=== PATIENT | male | born 1960 | race African-American/Black ===

== ENCOUNTER 2023-11-19 07:25 | Inpatient (IN) | payer MEDICARE, OTHER ==
[2023-11-19] VITALS (19 sets, daily range): BP systolic 157–213; BP diastolic 53–125; PULSE 61–88; RESP 14–33; TEMP 97.7–98.7; O2SAT 100
[~2023-11-19] VITALS: Ht 172.7 cm; Wt 74.8 kg
[2023-11-19] MEDS: ALBUTEROL (0.083%) 2.5MG/3ML NEB HHN STA (08:03)
[2023-11-19] MEDS: IPRATROPIUM BROMIDE (0.02%) 0.5MG/2.5ML NEB HHN STA (08:04)
[2023-11-19] MEDS: MAGNESIUM 2 G PREMIX 50 ML IV STA (08:12)
[2023-11-19] MEDS: METHYLPREDNISOLONE SOD SUCC 125MG/2ML (ACT-O-VIAL) IV STA (08:12)
[2023-11-19 08:15] LABS: BASOPHILS % 0.8 % (0.0-2.0); CHLORIDE 112 mEq/L (98-107); EOSINOPHILS % 3.4 % (0.0-5.0); HEMATOCRIT. 28.7 % (42.0-52.0); HEMOGLOBIN. 9.4 g/dL (14.0-18.0); LYMPHOCYTES % 14.2 % (20.0-50.0); MEAN CORPUSCULAR HEMOGLOBIN 30.4 pg (28.0-32.0); MEAN CORPUSCULAR HGB CONC 32.6 g/dL (31.0-37.0); MEAN CORPUSCULAR VOLUME 93.4 fL (80.0-94.0); MEAN PLATELET VOLUME 8.4 fl (7.4-10.4); MONOCYTES % 10.5 % (2.0-8.0); NEUTROPHILS % 71.1 % (40.0-76.0); PLATELET 201 x1000/uL (130-400); POTASSIUM 3.5 mEq/L (3.5-5.1); RED BLOOD CELL COUNT 3.07 mill/uL (4.7-6.1); RED CELL DISTRIBUTION WIDTH 15.5 % (11.6-14.6); SODIUM 144 mEq/L (136-145); WHITE BLOOD COUNT 5.3 x1000/uL (4.5-11.0)
[2023-11-19 08:16] LABS: CARBON DIOXIDE 25 mEq/L (21-32)
[2023-11-19 08:17] LABS: CALCIUM 8.3 mg/dL (8.7-10.4)
[2023-11-19 08:22] LABS: GLUCOSE 98 mg/dL (70-105); UREA NITROGEN BLOOD 37 mg/dL (9-23)
[2023-11-19 08:24] LABS: TROPONIN I HIGH SENSITIVITY 121 ng/L (3.0-53)
[2023-11-19] MEDS: HYDRALAZINE 20MG/ML VIAL IV ONE (09:02)
[2023-11-19] MEDS: NITROGLYCERIN 0.4MG TABLET SL SL ONE (09:36)
[2023-11-19 10:15] LABS: HEPATITIS B SURFACE ANTIGEN NEGATIVE (Negative)
[2023-11-19] MEDS ORDERED: DOCUSATE SODIUM 100MG CAPSULE PO PRN (10:15)
[2023-11-19] MEDS ORDERED: ACETAMINOPHEN 325MG TABLET PO PRN ×2 (10:15)
[2023-11-19] MEDS ORDERED: MAGNESIUM/ALUMINUM HYDROXIDE/SIMETHICONE 30ML UDC PO PRN (10:15)
[2023-11-19] MEDS ORDERED: GUAIFENESIN 200MG/10ML SUGAR FREE UDC PO PRN (10:15)
[2023-11-19] MEDS ORDERED: IPRATROPIUM/ALBUTEROL 0.5-3(2.5)MG/3ML NEB HHN PRN (10:15)
[2023-11-19] MEDS ORDERED: ONDANSETRON HCL 4MG/2ML INJ IV PRN (10:15)
[2023-11-19 10:35] LABS: HEPATITIS A AB IGM NEGATIVE (Negative)
[2023-11-19 10:36] LABS: HEPATITIS B CORE AB IGM NEGATIVE (Negative)
[2023-11-19 10:40] LABS: HEPATITIS C AB REACTIVE (Pos) (Negative)
[2023-11-19 10:52] LABS: BG BASE EXCESS -1.4 mmol/L (-2.0-2.0); BG CARBOXYHEMOGLOBIN 1.7 % (0.5-1.5); BG DEOXYHEMOGLOBIN 0.1 % (0.0-5.0); BG HCO3 ACT 22.2 mmol/L (22.0-26.0); BG METHEMOGLOBIN 0.3 % (0.0-1.5); BG OXYGEN SATURATION 99.9 % (92.0-98.5); BG OXYHEMOGLOBIN 97.9 % (94.0-97.0); BG PCO2 33.2 mmHg (35.0-45.0); BG PH 7.444 (7.350-7.450); BG SAMPLE SITE LEFT RADIAL; BG VENT MODE MASK - BIPAP
[2023-11-19 10:53] LABS: TRIGLYCERIDE 53 mg/dL (0-150)
[2023-11-19 10:54] LABS: LDL CHOLESTEROL 58 mg/dL (5-100)
[2023-11-19 10:55] LABS: ALANINE AMINOTRANSFERASE 22 IU/L (10-49); ASPARTATE AMINOTRANSFERASE 48 IU/L (<34); BILIRUBIN TOTAL 0.2 mg/dL (0.1-1.0); CHOLESTEROL 135 mg/dL (<200); HDL CHOLESTEROL 59 mg/dL (>55); PROTEIN TOTAL 6.4 g/dL (6.0-8.3)
[2023-11-19 10:56] LABS: BILIRUBIN DIRECT < 0.1 mg/dL (<=3.0)
[2023-11-19 10:59] LABS: T4 FREE 1.25 ng/dL (0.89-1.76); THYROID STIMULATING HORMONE 2.37 uIU/mL (0.55-4.78)
[2023-11-19] MEDS: ENOXAPARIN 30MG/0.3ML SYR SUBCUT SCH (12:13)
[2023-11-19] MEDS: LABETALOL 5MG/ML 4ML INJ IV NR (12:14)
[2023-11-19] MEDS: CLONIDINE 0.1MG TABLET PO PRN (12:52)
[2023-11-19] MEDS ORDERED: NICARDIPINE 100 MG in SODIUM CHLORIDE 0.9% 60 ML IV PRN (13:30)
[2023-11-19] MEDS: HYDRALAZINE HCL 100MG TABLET PO SCH (17:02)
[2023-11-19] MEDS: AMLODIPINE 10MG TABLET PO SCH (17:17)
[2023-11-19] MEDS: SEVELAMER CARBONATE 800 MG TABLET PO SCH (17:18)
[2023-11-19 18:13] LABS: TROPONIN I HIGH SENSITIVITY 157 ng/L (3.0-53)
[2023-11-19] MEDS ORDERED: HYDRALAZINE HCL 100MG TABLET PO SCH (21:00)
[2023-11-19] MEDS: FAMOTIDINE 20MG TABLET PO SCH (22:10)
[2023-11-19] MEDS: EPOETIN ALFA-EPBX 4,000 UNIT/ML VIAL SUBCUT SCH (22:10)
[2023-11-19] MEDS: CLONIDINE 0.2MG TABLET PO SCH (22:10)
[2023-11-19 22:26] LABS: *AMPHETAMINES SCREEN URINE NEGATIVE (NEGATIVE); *BARBITURATES SCREEN URINE NEGATIVE (NEGATIVE); *BENZODIAZEPINES SCREEN URINE NEGATIVE (NEGATIVE); *COCAINE SCREEN URINE PRESUMPTIVE POSITIVE (NEGATIVE); CANNABINOID URINE SCREEN PRESUMPTIVE POSITIVE (NEGATIVE); ECSTASY MDMA SCREEN URINE NEGATIVE (NEGATIVE); METHADONE URINE SCREEN NEGATIVE (NEGATIVE); OPIATES URINE SCREEN NEGATIVE (NEGATIVE); PHENCYCLIDINE URINE SCREEN NEGATIVE (NEGATIVE)
[2023-11-19 23:49] LABS: TROPONIN I HIGH SENSITIVITY 161 ng/L (3.0-53)
[2023-11-20] VITALS (12 sets, daily range): BP systolic 137–171; BP diastolic 67–85; PULSE 65–78; RESP 13–21; TEMP 98.1–98.7
[2023-11-20 08:32] LABS: POTASSIUM 3.4 mEq/L (3.5-5.1)
[2023-11-20 08:33] LABS: CALCIUM 8.3 mg/dL (8.7-10.4)
[2023-11-20 08:40] LABS: PHOSPHORUS 4.2 mg/dL (2.5-4.9)
[2023-11-20 08:42] LABS: BASOPHILS % 0.4 % (0.0-2.0); EOSINOPHILS % 0.6 % (0.0-5.0); HEMATOCRIT. 24.3 % (42.0-52.0); LYMPHOCYTES % 17.8 % (20.0-50.0); MEAN CORPUSCULAR HEMOGLOBIN 30.3 pg (28.0-32.0); MEAN CORPUSCULAR VOLUME 91.8 fL (80.0-94.0); MONOCYTES % 14.1 % (2.0-8.0); NEUTROPHILS % 67.1 % (40.0-76.0); PLATELET 179 x1000/uL (130-400); RED BLOOD CELL COUNT 2.65 mill/uL (4.7-6.1); WHITE BLOOD COUNT 6.1 x1000/uL (4.5-11.0)
[2023-11-20 08:48] LABS: CREATININE 5.4 mg/dL (0.6-1.3)
[2023-11-20] MEDS ORDERED: AMLODIPINE 10MG TABLET PO SCH (09:00)
[2023-11-20] MEDS: ASPIRIN 81MG TABLET PO SCH (09:09)
[2023-11-20] MEDS: DOXAZOSIN MESYLATE 2MG TABLET PO SCH (09:11)
[2023-11-20] MEDS: ISOSORBIDE DINITRATE 10MG TABLET PO SCH (09:12)
[2023-11-20] MEDS: MAGNESIUM 2 G PREMIX 50 ML IV NR (13:11)
[2023-11-20] MEDS: ISOSORBIDE DINITRATE 20MG TABLET PO SCH (13:18)
[2023-11-20] MEDS ORDERED: CLONIDINE 0.2MG TABLET PO SCH (14:00)
[2023-11-20] MEDS: CLONIDINE 0.2MG TABLET PO SCH (21:30)
[2023-11-21] VITALS (12 sets, daily range): BP systolic 132–160; BP diastolic 61–101; PULSE 62–76; RESP 15–22; TEMP 98–98.8; O2SAT 100
[2023-11-21] MEDS: BUDESONIDE 0.5MG/2ML NEB HHN SCH (00:25)
[2023-11-21 07:50] LABS: BASOPHILS % 0.7 % (0.0-2.0); HEMATOCRIT. 23.5 % (42.0-52.0); HEMOGLOBIN. 7.6 g/dL (14.0-18.0); LYMPHOCYTES % 19.3 % (20.0-50.0); MEAN CORPUSCULAR HGB CONC 32.5 g/dL (31.0-37.0); MEAN CORPUSCULAR VOLUME 92.4 fL (80.0-94.0); MEAN PLATELET VOLUME 8.9 fl (7.4-10.4); MONOCYTES % 10.4 % (2.0-8.0); NEUTROPHILS % 66.6 % (40.0-76.0); PLATELET 174 x1000/uL (130-400); RED BLOOD CELL COUNT 2.55 mill/uL (4.7-6.1); RED CELL DISTRIBUTION WIDTH 15.2 % (11.6-14.6); WHITE BLOOD COUNT 4.8 x1000/uL (4.5-11.0)
[2023-11-21 07:51] LABS: POTASSIUM 3.6 mEq/L (3.5-5.1)
[2023-11-21 07:52] LABS: CALCIUM 8.3 mg/dL (8.7-10.4)
[2023-11-21 08:17] LABS: CREATININE 6.1 mg/dL (0.6-1.3)
[2023-11-21] MEDS ORDERED: MAGNESIUM 2 G PREMIX 50 ML IV ONE (08:45)
== END 2023-11-21 13:10 | disposition left against medical advice (07) | DRG 280 ==
LOC: ER 07:33 → 5EST 08:44 → EDBEDREQTM 08:54 → EDBEDREQ 08:54 → EDBEDREQSVC 08:54
PROVIDERS: ADMIT Internal Medicine; ATTEND Internal Medicine
PROC: 5A09357 Assistance with Respiratory Ventilation, Less than 24 Consecutive Hours, Continuous Positive Airway Pressure (ICD-10-PCS; principal; 2023-11-19)
PROC: 5A1D70Z Performance of Urinary Filtration, Intermittent, Less than 6 Hours Per Day (ICD-10-PCS; 2023-11-19)
PROC: 5A1D70Z Performance of Urinary Filtration, Intermittent, Less than 6 Hours Per Day (ICD-10-PCS; 2023-11-21)
DX: I13.2 Hypertensive heart and chronic kidney disease with heart failure and with stage 5 chronic kidney disease, or end stage renal disease (principal); I50.33 Acute on chronic diastolic (congestive) heart failure; I21.4 Non-ST elevation (NSTEMI) myocardial infarction; J96.01 Acute respiratory failure with hypoxia; J96.02 Acute respiratory failure with hypercapnia; N18.6 End stage renal disease; I16.1 Hypertensive emergency; J44.1 Chronic obstructive pulmonary disease with (acute) exacerbation; E78.5 Hyperlipidemia, unspecified; Z99.2 Dependence on renal dialysis; D64.9 Anemia, unspecified; B19.20 Unspecified viral hepatitis C without hepatic coma; I1A.0 Resistant hypertension; F14.10 Cocaine abuse, uncomplicated; E83.42 Hypomagnesemia; E87.6 Hypokalemia; F19.10 Other psychoactive substance abuse, uncomplicated; Z91.148 Patient's other noncompliance with medication regimen for other reason
CPT/HCPCS: 36415; 36600; 71045; 80048; 80061; 80076; 80305; 82375; 82805; 83735; 83880; 84100; 84439; 84443; 84484; 85025; 86705; 86709; 87340; 90935; 93005; 93306; 94640; 94644; 94660; 99291; J0360; J0885; J1650; J2405; J2919; J3475; J3490; J7626

== ENCOUNTER 2024-12-19 06:57 | Inpatient (IN) | payer MEDICARE, OTHER ==
[2024-12-19] VITALS (64 sets, daily range): BP systolic 100–212; BP diastolic 48–113; PULSE 77–131; RESP 22–50; TEMP 36.6696–37.2252; O2SAT 99–100
[~2024-12-19] VITALS: Ht 175.3 cm; Wt 60.8 kg
[~2024-12-19 06:57] MED LIST: ASPI-1406 PO; CLON0.3T PO; FURO-151 MT; HYDR100T31 PO; ISOS30TA11 PO; NIFE90TA60 MT
[2024-12-19] MEDS: MORPHINE SULFATE 4 MG/ML INJ (FOR IV/IM USE) IV ONE (07:19)
[2024-12-19 07:47] LABS: BASOPHILS % 0.5 % (0.0-2.0); EOSINOPHILS % 2.4 % (0.0-5.0); HEMATOCRIT. 29.5 % (42.0-52.0); HEMOGLOBIN. 9.6 g/dL (14.0-18.0); LYMPHOCYTES % 13.2 % (20.0-50.0); MEAN PLATELET VOLUME 7.7 fl (7.4-10.4); MONOCYTES % 9.3 % (2.0-8.0); NEUTROPHILS % 74.6 % (40.0-76.0); PLATELET 124 x1000/uL (130-400); RED BLOOD CELL COUNT 3.29 mill/uL (4.7-6.1); RED CELL DISTRIBUTION WIDTH 15.7 % (11.6-14.6)
[2024-12-19 08:07] LABS: UREA NITROGEN BLOOD 42 mg/dL (9-23)
[2024-12-19 08:24] LABS: CREATININE 6.1 mg/dL (0.6-1.3); TROPONIN I HIGH SENSITIVITY 215 ng/L (3.0-53)
[2024-12-19] MEDS: SODIUM CHLORIDE 0.9% (SEPSIS BOLUS) IV ONE (08:43)
[2024-12-19] MEDS: HYDRALAZINE 20MG/ML VIAL IV ONE (09:00)
[2024-12-19] MEDS: PIPERACILLIN/TAZO 3.375G/50ML 50 ML IV ONE (09:09)
[2024-12-19] MEDS: NITROGLYCERIN 0.4MG TABLET SL SL PRN (09:13)
[2024-12-19] MEDS: PROPOFOL 10MG/ML 100ML 100 ML IV SCH (09:51)
[2024-12-19] MEDS: SUCCINYLCHOLINE CHLORIDE 200MG/10ML IV ONE (09:55)
[2024-12-19] MEDS: ETOMIDATE 2MG/ML 10ML VIAL IV ONE (09:55)
[2024-12-19] MEDS: HYDRALAZINE 20MG/ML VIAL IM NR (12:02)
[2024-12-19] MEDS ORDERED: ONDANSETRON HCL 4MG/2ML INJ IV PRN (12:15)
[2024-12-19 12:26] LABS: HEPATITIS A AB IGM NEGATIVE (Negative)
[2024-12-19 12:27] LABS: HEPATITIS B CORE AB IGM NEGATIVE (Negative)
[2024-12-19 12:33] LABS: BG BASE EXCESS -5.0 mmol/L (-2.0-3.0); BG CARBOXYHEMOGLOBIN 0.3 % (0.5-1.5); BG DEOXYHEMOGLOBIN 0.6 % (0.0-5.0); BG FRACTION INSPIRED OXYGEN 90; BG HCO3 ACT 21.2 mmol/L (21.0-28.0); BG METHEMOGLOBIN 0.3 % (0.5-1.5); BG OXYGEN SATURATION 99.4 % (94.0-98.0); BG OXYHEMOGLOBIN 98.8 % (94.0-98.0); BG PCO2 44.1 mmHg (35.0-48.0); BG PEEP (cmH2O) 10.0 cmH2O; BG PH 7.300 (7.350-7.450); BG PIP 20.0 cmH2O; BG PO2 292.6 mmHg (83.0-108.0); BG SAMPLE SITE RIGHT RADIAL; BG TOTAL HEMOGLOBIN 9.6 g/dL (13.5-17.5); BG TOTAL RESPIRATORY RATE 27 b/min; BG VENT MODE VENT - P/C; BG VENT RATE 22.0 set
[2024-12-19 13:11] LABS: HEPATITIS C AB REACTIVE (Pos) (Negative)
[2024-12-19] MEDS: IPRATROPIUM/ALBUTEROL 0.5-3(2.5)MG/3ML NEB HHN SCH (14:05)
[2024-12-19] MEDS: METHYLPREDNISOLONE SOD SUCC 40MG/ML (ACT-O-VIAL) IV SCH (14:08)
[2024-12-19] MEDS: ENOXAPARIN 30MG/0.3ML SYR SUBCUT SCH (14:08)
[2024-12-19] MEDS: PROPOFOL 10MG/ML 100ML 100 ML IV PRN (14:08)
[2024-12-19] MEDS: SODIUM CHLORIDE 0.9% 3ML FLUSH IVF SCH (14:13)
[2024-12-19] MEDS: ACETAMINOPHEN 325MG TABLET PO PRN (17:28)
[2024-12-19] MEDS ORDERED: HYDRALAZINE 20MG/ML VIAL IV SCH (18:00)
[2024-12-19] MEDS: ATORVASTATIN CALCIUM 20MG TABLET PO SCH (20:41)
[2024-12-19] MEDS: AMLODIPINE 5MG TABLET PO SCH (20:41)
[2024-12-19] MEDS: METOPROLOL TARTRATE 25MG TABLET PO SCH (20:42)
[2024-12-19] MEDS: HYDRALAZINE 20MG/ML VIAL IV PRN (21:36)
[2024-12-19] MEDS: FENTANYL CITRATE/PF 50MCG/ML 2ML VIAL IV PRN (22:42)
[2024-12-20] VITALS (104 sets, daily range): BP systolic 73–206; BP diastolic 26–153; PULSE 68–126; RESP 18–42; TEMP 37.2–37.72524; O2SAT 93–100
[2024-12-20] MEDS ORDERED: FENTANYL CITRATE/PF 50MCG/ML 2ML VIAL IV ONE
[2024-12-20] MEDS: LIDOCAINE HCL 1% 10 MG/ML 10ML VIAL ONE (08:45)
[2024-12-20] MEDS: ASPIRIN 81MG EC TABLET PO SCH (08:53)
[2024-12-20] MEDS: PROPOFOL 10MG/ML 100ML 100 ML IV PRN (12:40)
[2024-12-20 13:07] LABS: BG BASE EXCESS 0.6 mmol/L (-2.0-3.0); BG CARBOXYHEMOGLOBIN 0.7 % (0.5-1.5); BG DEOXYHEMOGLOBIN 1.0 % (0.0-5.0); BG FRACTION INSPIRED OXYGEN 40; BG HCO3 ACT 23.6 mmol/L (21.0-28.0); BG METHEMOGLOBIN 0.3 % (0.5-1.5); BG OXYGEN SATURATION 99.0 % (94.0-98.0); BG OXYHEMOGLOBIN 98.0 % (94.0-98.0); BG PCO2 31.4 mmHg (35.0-48.0); BG PEEP (cmH2O) 10.0 cmH2O; BG PH 7.493 (7.350-7.450); BG PIP 20.0 cmH2O; BG PO2 159.3 mmHg (83.0-108.0); BG SAMPLE SITE LEFT RADIAL; BG TOTAL HEMOGLOBIN 9.2 g/dL (13.5-17.5); BG TOTAL RESPIRATORY RATE 22 b/min; BG VENT MODE VENT - P/C; BG VENT RATE 22.0 set
[2024-12-20] MEDS: CLONIDINE 0.2MG TABLET PO SCH (14:35)
[2024-12-20] MEDS: NOREPINEPHRINE 8MG/250ML PMX 250 ML IV PRN (16:41)
[2024-12-20] MEDS: METOPROLOL TARTRATE 50MG TABLET PO SCH (20:43)
[2024-12-21] VITALS (97 sets, daily range): BP systolic 106–213; BP diastolic 34–91; PULSE 71–104; RESP 16–31; TEMP 36.7–37.3; O2SAT 98–100
[2024-12-21 04:19] LABS: HEMATOCRIT. 32.4 % (42.0-52.0); HEMOGLOBIN. 10.0 g/dL (14.0-18.0); MEAN PLATELET VOLUME 8.1 fl (7.4-10.4); PLATELET 154 x1000/uL (130-400); RED BLOOD CELL COUNT 3.42 mill/uL (4.7-6.1); RED CELL DISTRIBUTION WIDTH 18.2 % (11.6-14.6)
[2024-12-21 04:31] LABS: TRIGLYCERIDE 319.0 mg/dL (0-150); UREA NITROGEN BLOOD 77.0 mg/dL (9-23)
[2024-12-21 04:36] LABS: CREATININE 6.0 mg/dL (0.6-1.3)
[2024-12-21] MEDS: MORPHINE SULFATE 2 MG/ML INJ (NOT FOR IM USE) IV NR (06:44)
[2024-12-21] MEDS ORDERED: NICARDIPINE 40MG/200ML PREMIX 200 ML IV PRN (07:00)
[2024-12-21] MEDS: NICARDIPINE 50 MG in SODIUM CHLORIDE 0.9% 250 ML IV PRN (07:14)
[2024-12-21 08:14] LABS: BG BASE EXCESS -1.8 mmol/L (-2.0-3.0); BG CARBOXYHEMOGLOBIN 0.5 % (0.5-1.5); BG DEOXYHEMOGLOBIN 1.2 % (0.0-5.0); BG FRACTION INSPIRED OXYGEN 50; BG HCO3 ACT 22.2 mmol/L (21.0-28.0); BG METHEMOGLOBIN 0.0 % (0.5-1.5); BG OXYGEN SATURATION 98.8 % (94.0-98.0); BG OXYHEMOGLOBIN 98.3 % (94.0-98.0); BG PCO2 34.6 mmHg (35.0-48.0); BG PEEP (cmH2O) 5.0 cmH2O; BG PH 7.425 (7.350-7.450); BG PO2 150.8 mmHg (83.0-108.0); BG SAMPLE SITE RIGHT RADIAL; BG TOTAL HEMOGLOBIN 9.6 g/dL (13.5-17.5); BG VENT MODE VENT - P/C; BG VENT RATE 18.0 set
[2024-12-21 08:16] LABS: LYMPHOCYTES % MANUAL 7.0 % (20.0-50.0); MONOCYTES % MANUAL 20.0 % (2.0-8.0); NEUTROPHILS % MANUAL 73.0 % (45.0-75.0); NUCLEATED RED BLOOD CELLS 2 /100 WBC; PLATELET ESTIMATE NORMAL
[2024-12-21] MEDS: SODIUM POLYSTYRENE SULFONATE 15 G/60 ML BOT PO NR (08:25)
[2024-12-21] MEDS: DEXTROSE 50% WATER 50ML SYRINGE IV NR (08:25)
[2024-12-21] MEDS: SODIUM BICARBONATE 8.4% 50MEQ/50ML SYR IV NR (08:25)
[2024-12-21] MEDS: INSULIN REGULAR (HUMULIN R) 1000UNITS/10ML VIAL IV NR (08:26)
[2024-12-21] MEDS: MIDAZOLAM 100MG/100ML PMX 100 ML IV PRN (11:27)
[2024-12-21] MEDS: NICARDIPINE 40MG/200ML PREMIX 200 ML IV PRN (18:42)
[2024-12-21] MEDS: HYDRALAZINE HCL 100MG TABLET PO SCH (21:10)
[2024-12-22] VITALS (101 sets, daily range): BP systolic 116–197; BP diastolic 48–147; PULSE 69–90; RESP 11–32; TEMP 36.6–37.4; O2SAT 20–100
[2024-12-22 05:34] LABS: PLATELET 170 x1000/uL (130-400); RED BLOOD CELL COUNT 2.84 mill/uL (4.7-6.1); RED CELL DISTRIBUTION WIDTH 17.2 % (11.6-14.6)
[2024-12-22 05:43] LABS: UREA NITROGEN BLOOD 44 mg/dL (9-23)
[2024-12-22 05:45] LABS: ASPARTATE AMINOTRANSFERASE 13 IU/L (<34); BILIRUBIN TOTAL 0.3 mg/dL (0.1-1.0); PROTEIN TOTAL 6.7 g/dL (6.0-8.3)
[2024-12-22 05:50] LABS: CREATININE 5.0 mg/dL (0.6-1.3)
[2024-12-22 09:50] LABS: BG BASE EXCESS 4.9 mmol/L (-2.0-3.0); BG CARBOXYHEMOGLOBIN 1.0 % (0.5-1.5); BG DEOXYHEMOGLOBIN 1.4 % (0.0-5.0); BG FRACTION INSPIRED OXYGEN 40; BG HCO3 ACT 29.4 mmol/L (21.0-28.0); BG METHEMOGLOBIN 0.3 % (0.5-1.5); BG OXYGEN SATURATION 98.6 % (94.0-98.0); BG OXYHEMOGLOBIN 97.3 % (94.0-98.0); BG PCO2 43.3 mmHg (35.0-48.0); BG PEEP (cmH2O) 5.0 cmH2O; BG PH 7.449 (7.350-7.450); BG PO2 125.0 mmHg (83.0-108.0); BG SAMPLE SITE LEFT RADIAL; BG TIDAL VOLUME(mL) 450.0 mL; BG TOTAL HEMOGLOBIN 7.3 g/dL (13.5-17.5); BG VENT MODE VENT - AC; BG VENT RATE 18.0 set
[2024-12-22] MEDS: ISOSORBIDE MONONITRATE 60MG TABLET SR 24HR PO SCH (13:24)
[2024-12-22] MEDS: HYDRALAZINE HCL 100MG TABLET PO SCH (13:24)
[2024-12-22] MEDS: PIPERACILLIN/TAZO 3.375G/50ML 50 ML IV SCH (14:20)
[2024-12-22 15:18] LABS: *AMPHETAMINES SCREEN URINE NEGATIVE (NEGATIVE)
[2024-12-22 15:19] LABS: *BARBITURATES SCREEN URINE NEGATIVE (NEGATIVE); *BENZODIAZEPINES SCREEN URINE PRESUMPTIVE POSITIVE (NEGATIVE); *COCAINE SCREEN URINE PRESUMPTIVE POSITIVE (NEGATIVE); CANNABINOID URINE SCREEN NEGATIVE (NEGATIVE); ECSTASY MDMA SCREEN URINE NEGATIVE (NEGATIVE); METHADONE URINE SCREEN NEGATIVE (NEGATIVE); OPIATES URINE SCREEN NEGATIVE (NEGATIVE); PHENCYCLIDINE URINE SCREEN NEGATIVE (NEGATIVE)
[2024-12-22] MEDS: ISOSORBIDE MONONITRATE 60MG TABLET SR 24HR PO NR (22:27)
[2024-12-23] VITALS (77 sets, daily range): BP systolic 125–185; BP diastolic 42–91; PULSE 58–85; RESP 13–35; TEMP 36.114–37.1; O2SAT 98–100
[2024-12-23] MEDS ORDERED: NALOXONE HCL 0.4MG/ML VIAL IV PRN (03:45)
[2024-12-23] MEDS: MORPHINE SULFATE 2 MG/ML INJ (NOT FOR IM USE) IV PRN (03:55)
[2024-12-23 06:52] LABS: UREA NITROGEN BLOOD 85 mg/dL (9-23)
[2024-12-23 06:54] LABS: ASPARTATE AMINOTRANSFERASE 9 IU/L (<34); BILIRUBIN DIRECT < 0.1 mg/dL (<=3.0); BILIRUBIN TOTAL < 0.2 mg/dL (0.1-1.0); PROTEIN TOTAL 5.4 g/dL (6.0-8.3)
[2024-12-23 06:56] LABS: CREATININE 7.0 mg/dL (0.6-1.3); PHOSPHORUS 10.0 mg/dL (2.5-4.9)
[2024-12-23] MEDS: CALCIUM ACETATE 667MG CAPSULE PO SCH (08:35)
[2024-12-23] MEDS: DOCUSATE SODIUM SUGAR FREE 100MG/10ML UDC NG SCH (08:35)
[2024-12-23] MEDS: BISACODYL 5MG TABLET PO SCH (08:36)
[2024-12-23] MEDS: PSYLLIUM SEED PACKET PO SCH (08:40)
[2024-12-23 09:51] LABS: MEAN PLATELET VOLUME 7.7 fl (7.4-10.4); PLATELET 149 x1000/uL (130-400); RED BLOOD CELL COUNT 2.12 mill/uL (4.7-6.1); RED CELL DISTRIBUTION WIDTH 16.8 % (11.6-14.6)
[2024-12-23 10:14] LABS: HEMATOCRIT. 19.0 % (42.0-52.0); HEMOGLOBIN. 6.3 g/dL (14.0-18.0)
[2024-12-23 11:35] LABS: BAND% 4.0 % (1.0-6.0); LYMPHOCYTES % MANUAL 6.0 % (20.0-50.0); MONOCYTES % MANUAL 2.0 % (2.0-8.0); NEUTROPHILS % MANUAL 88.0 % (45.0-75.0); PLATELET ESTIMATE NORMAL
[2024-12-23 12:49] LABS: MEAN PLATELET VOLUME 7.4 fl (7.4-10.4); PLATELET 141 x1000/uL (130-400); RED BLOOD CELL COUNT 2.04 mill/uL (4.7-6.1); RED CELL DISTRIBUTION WIDTH 16.7 % (11.6-14.6)
[2024-12-23 12:54] LABS: HEMATOCRIT. 18.2 % (42.0-52.0); HEMOGLOBIN. 6.0 g/dL (14.0-18.0)
[2024-12-23 14:15] LABS: BAND% 2.0 % (1.0-6.0); LYMPHOCYTES % MANUAL 7.0 % (20.0-50.0); MONOCYTES % MANUAL 4.0 % (2.0-8.0); NEUTROPHILS % MANUAL 87.0 % (45.0-75.0); PLATELET ESTIMATE NORMAL
[2024-12-23 22:39] LABS: BASOPHILS % 0.1 % (0.0-2.0); EOSINOPHILS % 0.0 % (0.0-5.0); HEMATOCRIT. 27.1 % (42.0-52.0); HEMOGLOBIN. 9.3 g/dL (14.0-18.0); LYMPHOCYTES % 8.7 % (20.0-50.0); MEAN PLATELET VOLUME 7.8 fl (7.4-10.4); MONOCYTES % 14.7 % (2.0-8.0); NEUTROPHILS % 76.5 % (40.0-76.0); PLATELET 148 x1000/uL (130-400); RED BLOOD CELL COUNT 3.04 mill/uL (4.7-6.1); RED CELL DISTRIBUTION WIDTH 16.1 % (11.6-14.6)
[2024-12-23 22:48] LABS: UREA NITROGEN BLOOD 59 mg/dL (9-23)
[2024-12-23 22:50] LABS: PHOSPHORUS 6.3 mg/dL (2.5-4.9)
[2024-12-23 22:54] LABS: CREATININE 5.0 mg/dL (0.6-1.3)
[2024-12-24] VITALS (95 sets, daily range): BP systolic 130–212; BP diastolic 54–84; PULSE 56–91; RESP 12–38; TEMP 36.4–37.1; O2SAT 98–100
[2024-12-24] MEDS: DEXMEDETOMIDINE 250 ML IV PRN ×2 (01:03→17:35)
[2024-12-24 06:31] LABS: BASOPHILS % 0.2 % (0.0-2.0); EOSINOPHILS % 0.1 % (0.0-5.0); HEMATOCRIT. 26.6 % (42.0-52.0); HEMOGLOBIN. 8.9 g/dL (14.0-18.0); LYMPHOCYTES % 11.1 % (20.0-50.0); MEAN PLATELET VOLUME 7.3 fl (7.4-10.4); MONOCYTES % 14.2 % (2.0-8.0); NEUTROPHILS % 74.4 % (40.0-76.0); PLATELET 151 x1000/uL (130-400); RED BLOOD CELL COUNT 3.01 mill/uL (4.7-6.1); RED CELL DISTRIBUTION WIDTH 15.8 % (11.6-14.6)
[2024-12-24 06:59] LABS: UREA NITROGEN BLOOD 69 mg/dL (9-23)
[2024-12-24 07:01] LABS: PHOSPHORUS 6.8 mg/dL (2.5-4.9)
[2024-12-24 07:04] LABS: CREATININE 5.6 mg/dL (0.6-1.3)
[2024-12-24 10:28] LABS: BG BASE EXCESS 6.0 mmol/L (-2.0-3.0); BG CARBOXYHEMOGLOBIN 0.3 % (0.5-1.5); BG DEOXYHEMOGLOBIN 2.2 % (0.0-5.0); BG FRACTION INSPIRED OXYGEN 40; BG HCO3 ACT 30.9 mmol/L (21.0-28.0); BG METHEMOGLOBIN 0.3 % (0.5-1.5); BG OXYGEN SATURATION 97.8 % (94.0-98.0); BG OXYHEMOGLOBIN 97.2 % (94.0-98.0); BG PCO2 46.5 mmHg (35.0-48.0); BG PEEP (cmH2O) 5.0 cmH2O; BG PH 7.441 (7.350-7.450); BG PO2 126.8 mmHg (83.0-108.0); BG SAMPLE SITE LEFT RADIAL; BG TIDAL VOLUME(mL) 450.0 mL; BG TOTAL HEMOGLOBIN 10.5 g/dL (13.5-17.5); BG VENT MODE VENT - AC; BG VENT RATE 18.0 set
[2024-12-24] MEDS: LOSARTAN 50 MG TABLET PO SCH (11:08)
[2024-12-24] MEDS: ISOSORBIDE DINITRATE 30MG TABLET PO SCH (14:28)
[2024-12-24] MEDS: MINOXIDIL 2.5MG TABLET PO SCH ×2 (14:29→20:23)
[2024-12-24] MEDS: CLONIDINE 0.1MG TABLET PO SCH (14:29)
[2024-12-24] MEDS: LABETALOL 5MG/ML 4ML INJ IV SCH (15:05)
[2024-12-24] MEDS: HYDRALAZINE 20MG/ML VIAL IV PRN (15:15)
[2024-12-24] MEDS: CLONIDINE 0.3MG TABLET PO SCH (22:24)
[2024-12-25] VITALS (99 sets, daily range): BP systolic 107–199; BP diastolic 51–81; PULSE 65–110; RESP 14–49; TEMP 36.4–37.6; O2SAT 94–100
[2024-12-25 09:37] LABS: BG BASE EXCESS 3.5 mmol/L (-2.0-3.0); BG CARBOXYHEMOGLOBIN 1.1 % (0.5-1.5); BG DEOXYHEMOGLOBIN 3.1 % (0.0-5.0); BG FRACTION INSPIRED OXYGEN 40; BG HCO3 ACT 27.6 mmol/L (21.0-28.0); BG METHEMOGLOBIN 0.1 % (0.5-1.5); BG OXYGEN SATURATION 96.9 % (94.0-98.0); BG OXYHEMOGLOBIN 95.7 % (94.0-98.0); BG PCO2 39.9 mmHg (35.0-48.0); BG PEEP (cmH2O) 5.0 cmH2O; BG PH 7.458 (7.350-7.450); BG PO2 91.4 mmHg (83.0-108.0); BG SAMPLE SITE RIGHT RADIAL; BG TIDAL VOLUME(mL) 450.0 mL; BG TOTAL HEMOGLOBIN 10.8 g/dL (13.5-17.5); BG VENT MODE VENT - SIMV; BG VENT RATE 8.0 set
[2024-12-25] MEDS: METHYLPREDNISOLONE SOD SUCC 40MG/ML (ACT-O-VIAL) IV SCH (10:39)
[2024-12-25 12:17] LABS: PLATELET 243 x1000/uL (130-400); RED BLOOD CELL COUNT 3.66 mill/uL (4.7-6.1); RED CELL DISTRIBUTION WIDTH 16.3 % (11.6-14.6)
[2024-12-25 13:16] LABS: UREA NITROGEN BLOOD 103.0 mg/dL (9-23)
[2024-12-25 13:17] LABS: CREATININE 7.6 mg/dL (0.6-1.3)
[2024-12-25] MEDS: AMLODIPINE 5MG TABLET PO SCH (15:59)
[2024-12-25] MEDS: VANCOMYCIN 1G PREMIX 200 ML IV ONE (20:52)
[2024-12-26] VITALS (111 sets, daily range): BP systolic 83–245; BP diastolic 47–119; PULSE 63–134; RESP 11–33; TEMP 36.8–37.2; O2SAT 93–100
[2024-12-26 05:40] LABS: PLATELET 209 x1000/uL (130-400); RED BLOOD CELL COUNT 3.18 mill/uL (4.7-6.1); RED CELL DISTRIBUTION WIDTH 15.6 % (11.6-14.6)
[2024-12-26 05:51] LABS: UREA NITROGEN BLOOD 92.0 mg/dL (9-23)
[2024-12-26 06:13] LABS: CREATININE 6.8 mg/dL (0.6-1.3)
[2024-12-26 10:32] LABS: BG BASE EXCESS -1.5 mmol/L (-2.0-3.0); BG CARBOXYHEMOGLOBIN 0.3 % (0.5-1.5); BG DEOXYHEMOGLOBIN 1.6 % (0.0-5.0); BG FRACTION INSPIRED OXYGEN 40; BG HCO3 ACT 22.7 mmol/L (21.0-28.0); BG METHEMOGLOBIN 0.3 % (0.5-1.5); BG OXYGEN SATURATION 98.4 % (94.0-98.0); BG OXYHEMOGLOBIN 97.8 % (94.0-98.0); BG PCO2 36.2 mmHg (35.0-48.0); BG PEEP (cmH2O) 5.0 cmH2O; BG PH 7.416 (7.350-7.450); BG PO2 124.5 mmHg (83.0-108.0); BG SAMPLE SITE RIGHT RADIAL; BG TOTAL HEMOGLOBIN 10.2 g/dL (13.5-17.5); BG VENT MODE VENT - CPAP
[2024-12-26] MEDS ORDERED: VASOPRESSIN 20 UNIT in SODIUM CHLORIDE 0.9% 99 ML IV PRN (19:30)
[2024-12-26] MEDS: PHENYLEPHRINE 50MG/250ML PMX 250 ML IV PRN (20:10)
[2024-12-26] MEDS: CLONIDINE 0.1MG TABLET PO SCH (20:32)
[2024-12-26] MEDS: METOPROLOL TARTRATE 25MG TABLET PO SCH (20:33)
[2024-12-26] MEDS: MIDAZOLAM HCL 2 MG/2 ML VIAL IV NR (20:55)
[2024-12-27] VITALS (101 sets, daily range): BP systolic 83–172; BP diastolic 42–96; PULSE 81–134; RESP 12–23; TEMP 36.5–37.2; O2SAT 40–100
[2024-12-27] MEDS: DEXMEDETOMIDINE 250 ML IV PRN (00:10)
[2024-12-27 06:08] LABS: HEMATOCRIT. 27.2 % (42.0-52.0); HEMOGLOBIN. 9.2 g/dL (14.0-18.0); MEAN PLATELET VOLUME 7.4 fl (7.4-10.4); PLATELET 299 x1000/uL (130-400); RED BLOOD CELL COUNT 3.05 mill/uL (4.7-6.1); RED CELL DISTRIBUTION WIDTH 16.2 % (11.6-14.6)
[2024-12-27 07:40] LABS: CREATININE 8.2 mg/dL (0.6-1.3); UREA NITROGEN BLOOD 123 mg/dL (9-23)
[2024-12-27 07:42] LABS: PHOSPHORUS 8.5 mg/dL (2.5-4.9)
[2024-12-27 09:08] LABS: BG BASE EXCESS -2.7 mmol/L (-2.0-3.0); BG CARBOXYHEMOGLOBIN 0.0 % (0.5-1.5); BG DEOXYHEMOGLOBIN 1.5 % (0.0-5.0); BG FRACTION INSPIRED OXYGEN 40; BG HCO3 ACT 22.6 mmol/L (21.0-28.0); BG METHEMOGLOBIN 0.3 % (0.5-1.5); BG OXYGEN SATURATION 98.5 % (94.0-98.0); BG OXYHEMOGLOBIN 98.2 % (94.0-98.0); BG PCO2 41.0 mmHg (35.0-48.0); BG PEEP (cmH2O) 5.0 cmH2O; BG PH 7.359 (7.350-7.450); BG PO2 135.0 mmHg (83.0-108.0); BG SAMPLE SITE RIGHT RADIAL; BG TIDAL VOLUME(mL) 450.0 mL; BG TOTAL HEMOGLOBIN 10.1 g/dL (13.5-17.5); BG VENT MODE VENT - SIMV; BG VENT RATE 8.0 set
[2024-12-27 10:00] LABS: BAND% 1.0 % (1.0-6.0); LYMPHOCYTES % MANUAL 5.0 % (20.0-50.0); MONOCYTES % MANUAL 6.0 % (2.0-8.0); NEUTROPHILS % MANUAL 88.0 % (45.0-75.0); PLATELET ESTIMATE NORMAL
[2024-12-27] MEDS: EPOETIN ALFA 4,000 UNITS/ML VIAL SUBCUT SCH (21:30)
[2024-12-28] VITALS (101 sets, daily range): BP systolic 97–197; BP diastolic 57–115; PULSE 66–139; RESP 9–29; TEMP 36.3–36.7; O2SAT 91–100
[2024-12-28 06:20] LABS: HEMATOCRIT. 30.7 % (42.0-52.0); HEMOGLOBIN. 10.2 g/dL (14.0-18.0); MEAN PLATELET VOLUME 7.4 fl (7.4-10.4); PLATELET 341 x1000/uL (130-400); RED BLOOD CELL COUNT 3.40 mill/uL (4.7-6.1); RED CELL DISTRIBUTION WIDTH 15.7 % (11.6-14.6)
[2024-12-28 06:37] LABS: INR 1.0
[2024-12-28 06:58] LABS: UREA NITROGEN BLOOD 89 mg/dL (9-23)
[2024-12-28 07:00] LABS: ASPARTATE AMINOTRANSFERASE 18 IU/L (<34); BILIRUBIN TOTAL 0.3 mg/dL (0.1-1.0); PROTEIN TOTAL 5.8 g/dL (6.0-8.3)
[2024-12-28 09:03] LABS: BG BASE EXCESS -0.7 mmol/L (-2.0-3.0); BG CARBOXYHEMOGLOBIN 0.6 % (0.5-1.5); BG DEOXYHEMOGLOBIN 1.7 % (0.0-5.0); BG FRACTION INSPIRED OXYGEN 40; BG HCO3 ACT 24.5 mmol/L (21.0-28.0); BG METHEMOGLOBIN 0.0 % (0.5-1.5); BG OXYGEN SATURATION 98.3 % (94.0-98.0); BG OXYHEMOGLOBIN 97.7 % (94.0-98.0); BG PCO2 43.0 mmHg (35.0-48.0); BG PEEP (cmH2O) 5.0 cmH2O; BG PH 7.374 (7.350-7.450); BG PO2 122.7 mmHg (83.0-108.0); BG SAMPLE SITE LEFT RADIAL; BG TIDAL VOLUME(mL) 450.0 mL; BG TOTAL HEMOGLOBIN 10.6 g/dL (13.5-17.5); BG TOTAL RESPIRATORY RATE 14 b/min; BG VENT MODE VENT - SIMV; BG VENT RATE 8.0 set
[2024-12-28 09:16] LABS: CREATININE 6.5 mg/dL (0.6-1.3)
[2024-12-28 09:20] LABS: PHOSPHORUS 8.2 mg/dL (2.5-4.9)
[2024-12-28] MEDS: CALCIUM ACETATE 667MG CAPSULE PO SCH (12:28)
[2024-12-28] MEDS: DILTIAZEM HCL 5MG/ML 5ML VIAL IV NR (15:06)
[2024-12-28] MEDS ORDERED: NALOXONE HCL 0.4MG/ML VIAL IV PRN (15:15)
[2024-12-28] MEDS: METOPROLOL TARTRATE 50MG TABLET PO SCH ×2 (16:49→22:03)
[2024-12-28 17:07] LABS: BAND% 2.0 % (1.0-6.0); LYMPHOCYTES % MANUAL 5.0 % (20.0-50.0); MONOCYTES % MANUAL 3.0 % (2.0-8.0); NEUTROPHILS % MANUAL 90.0 % (45.0-75.0)
[2024-12-28 17:08] LABS: PLATELET ESTIMATE NORMAL; PLATELET SATELLITISM FEW
[2024-12-28] MEDS: PREDNISONE 10MG TABLET PO SCH (17:25)
[2024-12-28] MEDS ORDERED: DILTIAZEM HCL 30MG TABLET PO SCH ×2 (18:00→22:00)
[2024-12-28] MEDS: DILTIAZEM HCL 30MG TABLET PO SCH (18:05)
[2024-12-28] MEDS: TRAMADOL 50MG TABLET PO PRN (20:41)
[2024-12-29] VITALS (96 sets, daily range): BP systolic 107–196; BP diastolic 49–130; PULSE 65–135; RESP 18–37; TEMP 36.6–37.2; O2SAT 89–99
[2024-12-29] MEDS: DIPHENHYDRAMINE 50MG/ML VIAL IV PRN (01:20)
[2024-12-29] MEDS: METOPROLOL TARTRATE 5MG/5ML VIAL IV NR (02:18)
[2024-12-29 06:03] LABS: HEMATOCRIT. 29.6 % (42.0-52.0); HEMOGLOBIN. 10.1 g/dL (14.0-18.0); MEAN PLATELET VOLUME 7.5 fl (7.4-10.4); PLATELET 388 x1000/uL (130-400); RED BLOOD CELL COUNT 3.33 mill/uL (4.7-6.1); RED CELL DISTRIBUTION WIDTH 15.7 % (11.6-14.6)
[2024-12-29 06:34] LABS: CREATININE 7.6 mg/dL (0.6-1.3); UREA NITROGEN BLOOD 117.0 mg/dL (9-23)
[2024-12-29] MEDS: ENOXAPARIN 30MG/0.3ML SYR SUBCUT SCH (08:36)
[2024-12-29 10:53] LABS: BAND% 1.0 % (1.0-6.0); EOSINOPHILS % MANUAL 1.0 % (0.0-5.0); LYMPHOCYTES % MANUAL 2.0 % (20.0-50.0); MONOCYTES % MANUAL 7.0 % (2.0-8.0); NEUTROPHILS % MANUAL 89.0 % (45.0-75.0); PLATELET ESTIMATE NORMAL
[2024-12-29] MEDS: CLONIDINE 0.1MG TABLET PO SCH (11:27)
[2024-12-29] MEDS: PANTOPRAZOLE SODIUM 40 MG/VIAL IV SCH (11:27)
[2024-12-29] MEDS: BISACODYL 10MG SUPP PR NR (11:28)
[2024-12-29] MEDS: ISOSORBIDE DINITRATE 30MG TABLET PO SCH (12:27)
[2024-12-29] MEDS: NA PHOS,M-B/NA PHOS,DI-BA ENEMA 118ML PR SCH (14:53)
[2024-12-29] MEDS: LACTULOSE 20G/30ML UDC PO SCH (17:37)
[2024-12-30] VITALS (96 sets, daily range): BP systolic 93–178; BP diastolic 49–147; PULSE 46–86; RESP 17–30; TEMP 36.3–37.3; O2SAT 82–100
[2024-12-30 06:20] LABS: HEMATOCRIT. 26.6 % (42.0-52.0); HEMOGLOBIN. 8.7 g/dL (14.0-18.0); MEAN PLATELET VOLUME 7.1 fl (7.4-10.4); PLATELET 338 x1000/uL (130-400); RED BLOOD CELL COUNT 2.95 mill/uL (4.7-6.1); RED CELL DISTRIBUTION WIDTH 16.3 % (11.6-14.6)
[2024-12-30 06:51] LABS: UREA NITROGEN BLOOD 85.0 mg/dL (9-23)
[2024-12-30 06:55] LABS: CREATININE 6.7 mg/dL (0.6-1.3)
[2024-12-30] MEDS: QUETIAPINE FUMARATE 50MG TABLET PO SCH (09:30)
[2024-12-30] MEDS: DEXTROSE 50% WATER 50ML SYRINGE IV PRN (12:28)
[2024-12-30 13:04] LABS: BAND% 2.0 % (1.0-6.0); LYMPHOCYTES % MANUAL 2.0 % (20.0-50.0); MONOCYTES % MANUAL 7.0 % (2.0-8.0); NEUTROPHILS % MANUAL 89.0 % (45.0-75.0); PLATELET ESTIMATE NORMAL
[2024-12-30] MEDS: OLANZAPINE 10 MG/VIAL IM SCH (18:47)
[2024-12-31] VITALS (94 sets, daily range): BP systolic 124–176; BP diastolic 44–92; PULSE 58–122; RESP 19–32; TEMP 36.3918–37.4; O2SAT 87–98
[2024-12-31 10:24] LABS: HEMATOCRIT. 27.6 % (42.0-52.0); HEMOGLOBIN. 9.4 g/dL (14.0-18.0); MEAN PLATELET VOLUME 7.5 fl (7.4-10.4); PLATELET 382 x1000/uL (130-400); RED BLOOD CELL COUNT 3.11 mill/uL (4.7-6.1); RED CELL DISTRIBUTION WIDTH 16.0 % (11.6-14.6)
[2024-12-31] MEDS: PREDNISONE 20MG TABLET PO SCH (10:39)
[2024-12-31 12:44] LABS: UREA NITROGEN BLOOD 82.0 mg/dL (9-23)
[2024-12-31 13:13] LABS: CREATININE 5.9 mg/dL (0.6-1.3)
[2024-12-31] MEDS: EPOETIN ALFA-EPBX 4,000 UNITS/ML VIAL SUBCUT SCH (20:01)
[2024-12-31 21:18] LABS: LYMPHOCYTES % MANUAL 4.0 % (20.0-50.0); MONOCYTES % MANUAL 2.0 % (2.0-8.0); NEUTROPHILS % MANUAL 94.0 % (45.0-75.0); PLATELET ESTIMATE NORMAL
[2024-12-31] MEDS: OLANZAPINE 10 MG/VIAL IM SCH (21:23)
[2025-01-01] VITALS (82 sets, daily range): BP systolic 133–175; BP diastolic 46–79; PULSE 62–95; RESP 20–34; TEMP 36.7–37.2; O2SAT 87–99
[2025-01-01 07:31] LABS: PLATELET 305 x1000/uL (130-400); RED BLOOD CELL COUNT 2.59 mill/uL (4.7-6.1); RED CELL DISTRIBUTION WIDTH 16.3 % (11.6-14.6)
[2025-01-01 07:39] LABS: UREA NITROGEN BLOOD 92.0 mg/dL (9-23)
[2025-01-01 07:41] LABS: CREATININE 6.8 mg/dL (0.6-1.3)
[2025-01-01] MEDS: PREDNISONE 10MG TABLET PO SCH (09:21)
[2025-01-01] MEDS: NICARDIPINE 50 MG in SODIUM CHLORIDE 0.9% 250 ML IV PRN (09:47)
[2025-01-01] MEDS: OLANZAPINE 2.5MG TABLET PO SCH (17:28)
[2025-01-01] MEDS: CLONIDINE 0.2MG TABLET PO SCH (17:29)
[2025-01-01] MEDS ORDERED: OLANZAPINE 10 MG/VIAL IM SCH (21:00)
[2025-01-02] VITALS (87 sets, daily range): BP systolic 96–180; BP diastolic 46–78; PULSE 59–101; RESP 18–36; TEMP 36.6–37.1; O2SAT 90–100
[2025-01-02 10:35] LABS: BG BASE EXCESS -3.4 mmol/L (-2.0-3.0); BG CARBOXYHEMOGLOBIN 1.4 % (0.5-1.5); BG DEOXYHEMOGLOBIN 2.6 % (0.0-5.0); BG FLOW(L/min) 7.00 L/min; BG FRACTION INSPIRED OXYGEN 48; BG HCO3 ACT 19.5 mmol/L (21.0-28.0); BG METHEMOGLOBIN 0.4 % (0.5-1.5); BG OXYGEN SATURATION 97.4 % (94.0-98.0); BG OXYHEMOGLOBIN 95.6 % (94.0-98.0); BG PCO2 27.1 mmHg (35.0-48.0); BG PH 7.476 (7.350-7.450); BG PO2 95.8 mmHg (83.0-108.0); BG SAMPLE SITE RIGHT RADIAL; BG TOTAL HEMOGLOBIN 7.9 g/dL (13.5-17.5); BG VENT MODE NASAL CANNULA
[2025-01-03] VITALS (82 sets, daily range): BP systolic 106–175; BP diastolic 60–145; PULSE 66–128; RESP 18–46; TEMP 36.6–37; O2SAT 95–100
[2025-01-03 13:07] LABS: HEMATOCRIT. 22.4 % (42.0-52.0); HEMOGLOBIN. 7.5 g/dL (14.0-18.0); MEAN PLATELET VOLUME 7.3 fl (7.4-10.4); PLATELET 290 x1000/uL (130-400); RED BLOOD CELL COUNT 2.46 mill/uL (4.7-6.1); RED CELL DISTRIBUTION WIDTH 15.9 % (11.6-14.6)
[2025-01-03 13:20] LABS: CREATININE 9.6 mg/dL (0.6-1.3); UREA NITROGEN BLOOD 112.0 mg/dL (9-23)
[2025-01-03] MEDS: LIDOCAINE 5% PATCH TOP SCH (13:43)
[2025-01-03 14:13] LABS: EOSINOPHILS % MANUAL 3.0 % (0.0-5.0); LYMPHOCYTES % MANUAL 4.0 % (20.0-50.0); MONOCYTES % MANUAL 3.0 % (2.0-8.0); NEUTROPHILS % MANUAL 90.0 % (45.0-75.0); PLATELET ESTIMATE NORMAL
[2025-01-03] MEDS: QUETIAPINE FUMARATE 200MG TABLET PO SCH (20:02)
[2025-01-04] VITALS (22 sets, daily range): BP systolic 91–185; BP diastolic 47–97; PULSE 65–104; RESP 18–38; TEMP 36.1–36.5; O2SAT 95–100
[2025-01-04 12:35] LABS: PROTEIN BODY FLUID 2.7 gm/dL
[2025-01-04 14:25] LABS: BODY FLUID MONOCYTES 19 %; BODY FLUID RBC 1117500 /cu mm (0-2000); BODY FLUID WBC 667 /cu mm (0-200)
[2025-01-04] MEDS: DILTIAZEM HCL 60MG TABLET PO SCH (18:17)
[2025-01-05] VITALS (18 sets, daily range): BP systolic 96–182; BP diastolic 51–82; PULSE 56–137; RESP 17–21; TEMP 36.114–36.6; O2SAT 97–100
[2025-01-05] MEDS: IPRATROPIUM/ALBUTEROL 0.5-3(2.5)MG/3ML NEB HHN SCH (08:40)
[2025-01-05] MEDS ORDERED: IPRATROPIUM/ALBUTEROL 0.5-3(2.5)MG/3ML NEB HHN SCH (12:00)
[2025-01-05] MEDS: OLANZAPINE 10MG TABLET PO SCH (13:09)
[2025-01-05] MEDS: DILTIAZEM HCL 90MG TABLET PO SCH (13:09)
[2025-01-05] MEDS: CLONIDINE 0.1MG TABLET PO SCH (14:00)
[2025-01-06 08:00] VITALS: BP 144/91; PULSE 127; RESP 16; TEMP 36.7; O2SAT 98
[2025-01-06 12:00] VITALS: BP 149/80; PULSE 134; RESP 21; TEMP 37; O2SAT 97
[2025-01-06 12:22] VITALS: PULSE 130; RESP 20; O2SAT 96
[2025-01-06] MEDS: DIGOXIN 500MCG/2ML AMP IV NR (14:44)
[2025-01-06 16:00] VITALS: BP 139/81; PULSE 120; RESP 18; TEMP 36.7; O2SAT 98
[2025-01-06] MEDS ORDERED: LORAZEPAM 2MG/ML UD SYRINGE IV PRN (18:00)
[2025-01-06 18:28] LABS: BG BASE EXCESS 0.7 mmol/L (-2.0-3.0); BG CARBOXYHEMOGLOBIN 0.6 % (0.5-1.5); BG DEOXYHEMOGLOBIN 7.1 % (0.0-5.0); BG FLOW(L/min) 3.00 L/min; BG FRACTION INSPIRED OXYGEN 32; BG HCO3 ACT 23.3 mmol/L (21.0-28.0); BG METHEMOGLOBIN 0.3 % (0.5-1.5); BG OXYGEN SATURATION 92.8 % (94.0-98.0); BG OXYHEMOGLOBIN 92.0 % (94.0-98.0); BG PCO2 29.4 mmHg (35.0-48.0); BG PH 7.516 (7.350-7.450); BG PO2 65.5 mmHg (83.0-108.0); BG SAMPLE SITE LEFT BRACHIAL; BG TOTAL HEMOGLOBIN 8.7 g/dL (13.5-17.5); BG VENT MODE NASAL CANNULA
[2025-01-06] MEDS: LORAZEPAM 1MG TABLET PO PRN (18:42)
[2025-01-06 20:00] VITALS: BP 117/60; PULSE 63; RESP 22; TEMP 36.4; O2SAT 99
[2025-01-06] MEDS: HYDRALAZINE HCL 50MG TABLET PO SCH (21:33)
[2025-01-07] VITALS (18 sets, daily range): BP systolic 102–182; BP diastolic 49–98; PULSE 53–131; RESP 17–23; TEMP 35.9–36.9474; O2SAT 96–100
[2025-01-07] MEDS ORDERED: CALC667C PO (14:21)
[2025-01-07] MEDS ORDERED: DILT90TA2 PO (14:21)
[2025-01-07] MEDS ORDERED: HYDR50TA39 PO (14:21)
[2025-01-07] MEDS ORDERED: OLAN10TA72 PO (14:21)
[2025-01-07] MEDS ORDERED: LOSA50TA41 PO (14:21)
[2025-01-07] MEDS ORDERED: ISOS30TA11 PO (14:21)
[2025-01-07] MEDS: OLANZAPINE 10 MG/VIAL IM SCH (17:43)
[2025-01-08] VITALS (11 sets, daily range): BP systolic 97–145; BP diastolic 65–97; PULSE 67–132; RESP 16–20; TEMP 36.3–36.7; O2SAT 92–98
[2025-01-09] VITALS (19 sets, daily range): BP systolic 87–161; BP diastolic 60–105; PULSE 51–132; RESP 14–24; TEMP 36.114–36.8; O2SAT 84–100
[2025-01-09] MEDS: OLANZAPINE 10MG TABLET PO SCH (06:51)
[2025-01-10] VITALS (8 sets, daily range): BP systolic 19–149; BP diastolic 60–102; PULSE 64–129; RESP 16–33; TEMP 36.3–37.1; O2SAT 93–100
[2025-01-10 05:59] LABS: BG BASE EXCESS -0.3 mmol/L (-2.0-3.0); BG CARBOXYHEMOGLOBIN 0.4 % (0.5-1.5); BG DEOXYHEMOGLOBIN 70.1 % (0.0-5.0); BG FLOW(L/min) 3.00 L/min; BG FRACTION INSPIRED OXYGEN 32; BG HCO3 ACT 24.5 mmol/L (21.0-28.0); BG METHEMOGLOBIN 0.3 % (0.5-1.5); BG OXYGEN SATURATION 29.4 % (94.0-98.0); BG OXYHEMOGLOBIN 29.2 % (94.0-98.0); BG PCO2 40.6 mmHg (35.0-48.0); BG PH 7.398 (7.350-7.450); BG PO2 21.2 mmHg (83.0-108.0); BG SAMPLE SITE LEFT RADIAL; BG TOTAL HEMOGLOBIN 9.9 g/dL (13.5-17.5); BG VENT MODE NASAL CANNULA
[2025-01-10] MEDS: RISPERIDONE 1MG TABLET PO SCH (21:26)
[2025-01-11] VITALS (11 sets, daily range): BP systolic 84–146; BP diastolic 61–92; PULSE 41–135; RESP 17–24; TEMP 36.2–36.9474; O2SAT 96–100
[2025-01-11] MEDS: MEGESTROL ACETATE 400 MG/10 ML UDC PO SCH (10:52)
[2025-01-12] VITALS: BP 109/67; PULSE 129; RESP 20; TEMP 36.8; O2SAT 100
[2025-01-12 04:00] VITALS: BP 125/85; PULSE 129; RESP 18; TEMP 36.6; O2SAT 100
[2025-01-12 08:00] VITALS: BP 151/98; PULSE 127; RESP 18; TEMP 36.6; O2SAT 98
[2025-01-12 12:00] VITALS: BP 113/55; PULSE 45; RESP 18; TEMP 36.6; O2SAT 98
[2025-01-12 13:39] LABS: UREA NITROGEN BLOOD 57.0 mg/dL (9-23)
[2025-01-12] MEDS: DILTIAZEM HCL 5MG/ML 5ML VIAL IV NR (13:50)
[2025-01-12 14:36] LABS: CREATININE 9.7 mg/dL (0.6-1.3)
[2025-01-12 16:00] VITALS: BP 142/88; PULSE 119; RESP 18; TEMP 36.7; TEMP 37.1; O2SAT 98
[2025-01-12 20:00] VITALS: BP 134/84; PULSE 129; RESP 19; TEMP 36.7; O2SAT 93
[2025-01-12] MEDS: LOSARTAN 25 MG TABLET PO SCH (22:14)
[2025-01-12] MEDS: ISOSORBIDE DINITRATE 30MG TABLET PO SCH (22:16)
[2025-01-13] VITALS (16 sets, daily range): BP systolic 86–150; BP diastolic 52–92; PULSE 75–139; RESP 18–24; TEMP 36.6–36.9474; O2SAT 92–99
[2025-01-13] MEDS: DILTIAZEM HCL 180MG CAPSULE ER 24HR PO SCH (09:24)
[2025-01-13] MEDS ORDERED: IPRATROPIUM/ALBUTEROL 0.5-3(2.5)MG/3ML NEB HHN PRN (14:30)
[2025-01-13] MEDS: SODIUM POLYSTYRENE SULFONATE 15 G/60 ML BOT PO SCH (14:37)
[2025-01-14] VITALS: BP 100/73; PULSE 136; RESP 19; TEMP 36.7; O2SAT 91
[2025-01-14 04:00] VITALS: BP 133/58; PULSE 91; RESP 20; TEMP 36.3; O2SAT 90
[2025-01-14 08:00] VITALS: BP 96/65; PULSE 87; RESP 16; TEMP 36.2; O2SAT 96
[2025-01-14 12:00] VITALS: BP 117/66; PULSE 99; RESP 16; TEMP 36.2; O2SAT 95
[2025-01-14 16:00] VITALS: BP 136/80; PULSE 96; RESP 16; TEMP 36.2; O2SAT 96
[2025-01-14 20:00] VITALS: BP 152/99; PULSE 135; RESP 20; TEMP 36.5; O2SAT 96
[2025-01-15] VITALS (15 sets, daily range): BP systolic 111–151; BP diastolic 77–100; PULSE 20–132; RESP 17–22; TEMP 36.2–36.8; O2SAT 96–99
[2025-01-15 08:53] LABS: BASOPHILS % 0.3 % (0.0-2.0); EOSINOPHILS % 1.3 % (0.0-5.0); HEMATOCRIT. 29.4 % (42.0-52.0); HEMOGLOBIN. 9.6 g/dL (14.0-18.0); LYMPHOCYTES % 15.7 % (20.0-50.0); MEAN PLATELET VOLUME 7.6 fl (7.4-10.4); MONOCYTES % 12.2 % (2.0-8.0); NEUTROPHILS % 70.5 % (40.0-76.0); PLATELET 187 x1000/uL (130-400); RED BLOOD CELL COUNT 3.10 mill/uL (4.7-6.1); RED CELL DISTRIBUTION WIDTH 16.8 % (11.6-14.6)
[2025-01-15 09:15] LABS: UREA NITROGEN BLOOD 58.0 mg/dL (9-23)
[2025-01-15 09:40] LABS: CREATININE 9.6 mg/dL (0.6-1.3)
[2025-01-15] MEDS ORDERED: IPRATROPIUM BROMIDE (0.02%) 0.5MG/2.5ML NEB HHN PRN (11:00)
[2025-01-15] MEDS: DIGOXIN 500MCG/2ML AMP IV SCH (17:01)
[2025-01-16] VITALS: BP 145/99; RESP 20; TEMP 36.6; O2SAT 96
[2025-01-16 04:00] VITALS: BP 143/80; PULSE 90; RESP 19; TEMP 36.6; O2SAT 94
[2025-01-16 08:27] LABS: BASOPHILS % 0.4 % (0.0-2.0); EOSINOPHILS % 1.9 % (0.0-5.0); HEMATOCRIT. 29.2 % (42.0-52.0); HEMOGLOBIN. 9.4 g/dL (14.0-18.0); LYMPHOCYTES % 14.5 % (20.0-50.0); MEAN PLATELET VOLUME 7.3 fl (7.4-10.4); MONOCYTES % 12.7 % (2.0-8.0); NEUTROPHILS % 70.5 % (40.0-76.0); PLATELET 178 x1000/uL (130-400); RED BLOOD CELL COUNT 3.11 mill/uL (4.7-6.1); RED CELL DISTRIBUTION WIDTH 16.2 % (11.6-14.6)
[2025-01-16 08:44] LABS: UREA NITROGEN BLOOD 44.0 mg/dL (9-23)
[2025-01-16 09:01] LABS: CREATININE 7.2 mg/dL (0.6-1.3)
[2025-01-16 12:00] VITALS: PULSE 90; RESP 22; TEMP 36.1; O2SAT 96
[2025-01-16 16:00] VITALS: PULSE 80; RESP 20; TEMP 36; O2SAT 96
[2025-01-16 20:00] VITALS: BP 137/74; PULSE 85; RESP 22; TEMP 36.4; O2SAT 99
[2025-01-17] VITALS (9 sets, daily range): BP systolic 114–141; BP diastolic 58–77; PULSE 64–93; RESP 16–20; TEMP 36.4–36.9; O2SAT 96–99
[2025-01-17 09:40] LABS: BASOPHILS % 0.2 % (0.0-2.0); EOSINOPHILS % 1.2 % (0.0-5.0); HEMATOCRIT. 32.6 % (42.0-52.0); HEMOGLOBIN. 10.5 g/dL (14.0-18.0); LYMPHOCYTES % 15.4 % (20.0-50.0); MEAN PLATELET VOLUME 7.5 fl (7.4-10.4); MONOCYTES % 13.7 % (2.0-8.0); NEUTROPHILS % 69.5 % (40.0-76.0); PLATELET 196 x1000/uL (130-400); RED BLOOD CELL COUNT 3.48 mill/uL (4.7-6.1); RED CELL DISTRIBUTION WIDTH 16.3 % (11.6-14.6)
[2025-01-17 09:52] LABS: UREA NITROGEN BLOOD 54.0 mg/dL (9-23)
[2025-01-17 09:53] LABS: CREATININE 8.6 mg/dL (0.6-1.3)
[2025-01-17] MEDS: SODIUM BICARBONATE 4.2% 2.5MEQ/5ML VIAL IV ONE (11:00)
[2025-01-17] MEDS: ISOSORBIDE DINITRATE 30MG TABLET PO SCH (21:52)
[2025-01-18] VITALS (14 sets, daily range): BP systolic 110–151; BP diastolic 72–93; PULSE 61–116; RESP 16–20; TEMP 36.5–36.72516; O2SAT 96–100
[2025-01-18 08:01] LABS: BASOPHILS % 0.3 % (0.0-2.0); EOSINOPHILS % 1.2 % (0.0-5.0); HEMATOCRIT. 28.2 % (42.0-52.0); HEMOGLOBIN. 9.2 g/dL (14.0-18.0); LYMPHOCYTES % 14.2 % (20.0-50.0); MEAN PLATELET VOLUME 7.4 fl (7.4-10.4); MONOCYTES % 12.5 % (2.0-8.0); NEUTROPHILS % 71.8 % (40.0-76.0); PLATELET 199 x1000/uL (130-400); RED BLOOD CELL COUNT 3.05 mill/uL (4.7-6.1); RED CELL DISTRIBUTION WIDTH 15.8 % (11.6-14.6)
[2025-01-18 08:30] LABS: UREA NITROGEN BLOOD 71.0 mg/dL (9-23)
[2025-01-18 08:44] LABS: CREATININE 9.8 mg/dL (0.6-1.3)
== END 2025-01-18 16:45 | DRG 870 ==
LOC: ER 06:57 → CVICU 09:48 → EDBEDREQSVC 09:51 → ENRESERV 10:13 → 6WST 01-04 04:34
PROVIDERS: ADMIT Internal Medicine; ATTEND Internal Medicine
PROC: 5A1955Z Respiratory Ventilation, Greater than 96 Consecutive Hours (ICD-10-PCS; principal; 2024-12-19)
PROC: 0BH17EZ Insertion of Endotracheal Airway into Trachea, Via Natural or Artificial Opening (ICD-10-PCS; 2024-12-19)
PROC: 02HV33Z Insertion of Infusion Device into Superior Vena Cava, Percutaneous Approach (ICD-10-PCS; 2024-12-19)
PROC: B548ZZA Ultrasonography of Superior Vena Cava, Guidance (ICD-10-PCS; 2024-12-19)
PROC: 5A1D70Z Performance of Urinary Filtration, Intermittent, Less than 6 Hours Per Day (ICD-10-PCS; 2024-12-19)
PROC: 02HV33Z Insertion of Infusion Device into Superior Vena Cava, Percutaneous Approach (ICD-10-PCS; 2024-12-20)
PROC: B548ZZA Ultrasonography of Superior Vena Cava, Guidance (ICD-10-PCS; 2024-12-20)
PROC: 5A1D70Z Performance of Urinary Filtration, Intermittent, Less than 6 Hours Per Day (ICD-10-PCS; 2024-12-20)
PROC: 5A1D70Z Performance of Urinary Filtration, Intermittent, Less than 6 Hours Per Day (ICD-10-PCS; 2024-12-21)
PROC: 30233N1 Transfusion of Nonautologous Red Blood Cells into Peripheral Vein, Percutaneous Approach (ICD-10-PCS; 2024-12-23)
PROC: 5A1D70Z Performance of Urinary Filtration, Intermittent, Less than 6 Hours Per Day (ICD-10-PCS; 2024-12-23)
PROC: 5A1D70Z Performance of Urinary Filtration, Intermittent, Less than 6 Hours Per Day (ICD-10-PCS; 2024-12-25)
PROC: 5A1D70Z Performance of Urinary Filtration, Intermittent, Less than 6 Hours Per Day (ICD-10-PCS; 2024-12-27)
PROC: 5A1D70Z Performance of Urinary Filtration, Intermittent, Less than 6 Hours Per Day (ICD-10-PCS; 2024-12-29)
PROC: 5A1D70Z Performance of Urinary Filtration, Intermittent, Less than 6 Hours Per Day (ICD-10-PCS; 2024-12-31)
PROC: 5A1D70Z Performance of Urinary Filtration, Intermittent, Less than 6 Hours Per Day (ICD-10-PCS; 2025-01-03)
PROC: 0W993ZZ Drainage of Right Pleural Cavity, Percutaneous Approach (ICD-10-PCS; 2025-01-04)
PROC: 5A1D70Z Performance of Urinary Filtration, Intermittent, Less than 6 Hours Per Day (ICD-10-PCS; 2025-01-05)
PROC: 5A1D70Z Performance of Urinary Filtration, Intermittent, Less than 6 Hours Per Day (ICD-10-PCS; 2025-01-07)
PROC: 5A1D70Z Performance of Urinary Filtration, Intermittent, Less than 6 Hours Per Day (ICD-10-PCS; 2025-01-09)
PROC: 5A1D70Z Performance of Urinary Filtration, Intermittent, Less than 6 Hours Per Day (ICD-10-PCS; 2025-01-11)
PROC: 5A1D70Z Performance of Urinary Filtration, Intermittent, Less than 6 Hours Per Day (ICD-10-PCS; 2025-01-13)
PROC: 5A1D70Z Performance of Urinary Filtration, Intermittent, Less than 6 Hours Per Day (ICD-10-PCS; 2025-01-15)
PROC: 5A1D70Z Performance of Urinary Filtration, Intermittent, Less than 6 Hours Per Day (ICD-10-PCS; 2025-01-17)
PROC: 5A1D70Z Performance of Urinary Filtration, Intermittent, Less than 6 Hours Per Day (ICD-10-PCS; 2025-01-18)
DX: A41.9 Sepsis, unspecified organism (principal); I21.4 Non-ST elevation (NSTEMI) myocardial infarction; I50.31 Acute diastolic (congestive) heart failure; J96.01 Acute respiratory failure with hypoxia; N18.6 End stage renal disease; I46.9 Cardiac arrest, cause unspecified; G93.41 Metabolic encephalopathy; G82.50 Quadriplegia, unspecified; I13.2 Hypertensive heart and chronic kidney disease with heart failure and with stage 5 chronic kidney disease, or end stage renal disease; I16.1 Hypertensive emergency; J44.1 Chronic obstructive pulmonary disease with (acute) exacerbation; I48.92 Unspecified atrial flutter; G72.81 Critical illness myopathy; J91.8 Pleural effusion in other conditions classified elsewhere; D64.9 Anemia, unspecified; E78.5 Hyperlipidemia, unspecified; F14.10 Cocaine abuse, uncomplicated; T40.5X1A Poisoning by cocaine, accidental (unintentional), initial encounter; R13.10 Dysphagia, unspecified; I25.10 Atherosclerotic heart disease of native coronary artery without angina pectoris; E78.1 Pure hyperglyceridemia; E87.5 Hyperkalemia; T42.75XA Adverse effect of unspecified antiepileptic and sedative-hypnotic drugs, initial encounter; I48.91 Unspecified atrial fibrillation; R26.9 Unspecified abnormalities of gait and mobility; R53.81 Other malaise; R62.7 Adult failure to thrive; F17.200 Nicotine dependence, unspecified, uncomplicated; Z99.2 Dependence on renal dialysis; Z95.2 Presence of prosthetic heart valve; Z95.5 Presence of coronary angioplasty implant and graft; Z79.899 Other long term (current) drug therapy; Z88.8 Allergy status to other drugs, medicaments and biological substances; Y92.89 Other specified places as the place of occurrence of the external cause
CPT/HCPCS: 31500; 31720; 32555; 36415; 36573; 36600; 71045; 74018; 74176; 76604; 80048; 80051; 80053; 80076; 80305; 82140; 82375; 82805; 82962; 83605; 83615; 83735; 83880; 83986; 84100; 84132; 84145; 84478; 84484; 85025; 85027; 86705; 86709; 86850; 86900; 86920; 87070; 87340; 88108; 88312; 90935; 92610; 93005; 93306; 93970; 94002; 94003; 94070; 94640; 94660; 94664; 94760; 96365; 96375; 97162; 97166; 97530; 97535; 98960; 99291; 99292; A4606; A6449; C1725; J0360; J0885; J1160; J1200; J1650; J1815; J2003; J2060; J2250; J2270; J2371; J2470; J2543; J2704; J2919; J3010; J3490; J7030; J7050; J7512; P9016